=== PATIENT | female | born 1970 | race American Indian/Alaskan Native ===

== ENCOUNTER 2017-01-26 09:46 | Outpatient (CLI) | payer BC ==
--- NOTE | 2017-01-26 15:08 | XRay Report ---
Chest 2 views: History: Cough. Findings: Normal cardiomediastinal silhouette. Trachea is midline. No consolidation, pneumothorax or pleural effusion. Impression: No acute cardiopulmonary findings.
--- NOTE | 2017-01-26 15:16 | Mammography Report ---
BILATERAL DIGITAL SCREENING MAMMOGRAM with CAD: 01/26/17 CLINICAL: Routine screening. COMPARISON:None available. However, a prior mammogram was apparently done at [facility], [place]. FINDINGS: The breasts are heterogeneously dense, which may obscure small masses. A right asymmetry on both views requires comparison with a prior mammogram or additional imaging of the right breast.No architectural distortion or suspicious calcifications.The left breast is negative. IMPRESSION: Right asymmetry requiring further evaluation. BI-RADS CATEGORY: 0 -- Additional Evaluation Required RECOMMENDATION: Comparison with a previous mammogram. We will attempt to obtain a prior mammogram from [facility], a [place]. If we do not obtain a prior mammogram for comparison within 30 days, a revised report will be issued recommending a recall for additional imaging. Please be advised that the patient should not schedule an appointment for return until adequate time (at least 2 weeks) has passed for us to obtain the prior mammogram. ACR BI-RADS MAMMOGRAPHIC CODES: 0 = Needs additional imaging evaluation; 1 = Negative; 2 = Benign; 3 = Probably benign; 4 = Suspicious; 5 = Malignant; 6 = Known biopsy-proven malignancy COMMENT: 1. Dense breast tissue, i.e., adenosis, fibrocystic changes, etc., may obscure an underlying neoplasm. 2. Approximately 10% of cancers are not detected with mammography. 3. A negative mammography report should not delay biopsy if a clinically suspicious mass is present. COMMENT: Patient follow-up letters are generated via our [employer] application.
== END 2017-01-26 09:47 | disposition home or self-care (01) ==
LOC: SPVWC 09:46
DX: Z12.31 Encounter for screening mammogram for malignant neoplasm of breast (principal); R05 Cough
CPT/HCPCS: 71020; G0202; 77067

== ENCOUNTER 2020-09-13 12:20 | Outpatient (CLI) | payer BC ==
--- NOTE | 2020-09-13 14:23 | XRay Report ---
CHEST 2 VIEWS INDICATION: ACUTE URI J06.9. COMPARISON: None FINDINGS: Support devices: None. Heart: Heart size is within normal limits. 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 The hilar r egions are unremarkable. Lungs/pleura: No acute air space or interstitial disease. No pneumothorax. Additional findings: None. IMPRESSION: No acute findings. There appears to be a right-sided aorta. Signer Name: Shan Infante Jr, MD Signed: 09/13/2020 2:18 PM Workstation Name: [id number]
== END 2020-09-13 12:21 | disposition home or self-care (01) ==
LOC: SPVIMAG 12:20
PROVIDERS: ATTEND Internal Medicine
DX: J06.9 Acute upper respiratory infection, unspecified (principal)
CPT/HCPCS: 71046